=== PATIENT | female | born 2000 | race Caucasian/White ===

== ENCOUNTER 2020-10-30 12:53 | Emergency (ER) | payer SELFPAY ==
[~2020-10-30] VITALS: Ht 165.1 cm; Wt 117.5 kg
[2020-10-30 13:10] VITALS: BP 117/54; Ht 165.1 cm; Wt 117.5 kg
[2020-10-30] MEDS ORDERED: NORCO1 TA2 PO (13:59)
[2020-10-30] MEDS ORDERED: CLINDAMYCIN150 M1 PO (13:59)
== END 2020-10-30 15:01 | disposition home or self-care (01) ==
LOC: ED 12:53
DX: K05.319 Chronic periodontitis, localized, unspecified severity (principal)
CPT/HCPCS: J2001